=== PATIENT | female | born 1990 | race Caucasian/White ===

== ENCOUNTER 2016-12-31 21:47 | Emergency (ER) | payer OTHER, SELFPAY ==
[2016-12-31 22:23] LABS: #Basophils 0.1 thou/uL (0.0-0.2); #Eosinphils 0.2 thou/uL (0.0-0.7); #Lymphocytes 4.4 thou/uL (1.20-3.40); #Monocytes 0.7 thou/uL (0.11-0.59); #Neutrophils 7.3 thou/uL (1.40-6.50); %Basophils 0.6 % (0.0-1.0); %Eosinophils 1.5 % (0.0-10.0); %Lymphocytes 34.9 % (21.0-51.0); %Monocytes 5.4 % (0.0-10.0); Hematocrit 38.9 % (36.0-47.0); Mean Platelet Volume 6.4 fL (7.4-10.4); Red Blood Cell (RBC) Count 4.39 mill/uL (4.20-5.40); White Blood Cell (WBC) Count 12.7 thou/uL (4.8-10.8)
[2016-12-31 22:32] LABS: Bilirubin Negative (Negative); Blood, Urine Negative (Negative); Glucose, Urine (Dipstick) Negative (Negative); Ketone, Urine Negative (Negative); Nitrite Negative (Negative); Protein, Urine (Dipstick) Negative (Neg-Trace); Urobilinogen 0.2 mg/dL (0.2-1.0)
[2016-12-31 22:50] LABS: ALT (SGPT) 14 U/L (8-55); AST (SGOT) 13 U/L (5-34); Alkaline Phosphatase 101 U/L (40-150); Anion Gap 13 mmol/L (10-20); BUN (Urea Nitrogen) 12 mg/dL (7.0-18.7); Bilirubin, Total 0.3 mg/dL (0.2-1.2); Calc. Creatinine Clearance 0 mL/min (70-130); Calcium 9.1 mg/dL (7.8-10.44); Carbon Dioxide 22 mmol/L (22-29); Chloride 106 mmol/L (98-107); Estimated GFR-MDRD Greater than 90; Globulin 2.9 g/dL (2.4-3.5); Lipase 31 U/L (8-78); Protein, Total 6.8 g/dL (6.0-8.3)
--- NOTE | 2017-01-01 07:05 | ULT ---
PELVIC SONOGRAM TRANSABDOMINAL AND TRANSVAGINAL IMAGING WITH DUPLEX EVALUATION: Date: 12/31/16 HISTORY: Pelvic pain. FINDINGS: Urinary bladder is incompletely distended. The uterus has a heterogeneous echotexture and is 7.5 cm i n length. Endometrium is 1.7 cm in thickness and contains a tiny cystic structure that is 0.4 cm diam eter, correlating with a 5 weeks/1 day gestational age. No yolk sac or pole are apparent. No fr ee fluid is demonstrated within the pelvis. The right ovary is 2.5 cm in length and the left is 2.0 cm. Each has a normal appearance and demonstr ates good color and spectral Doppler flow. IMPRESSION: Tiny cystic structure within the endometrial cavity may represent a very early gestational sac. No ot her significant abnormalities are apparent. Close continued clinical and sonographic follow-up is sug gested. POS: [facility]
--- NOTE | 2017-01-01 08:46 | MRI ---
PRELIMINARY REPORT/[facility]/EMERGENCY AFTER HOURS PROCEDURE: EXAM: MR Abdomen Without Intravenous Contrast EXAM DATE/TIME: Exam ordered 01/01/2017 1:35 AM CLINICAL HISTORY: 26 years old, female; Pain; Abdominal pain; Tenderness; Right lower quadrant (rlq); Patient HX: F26 g [id number] with previous history of ectopic and approximately 6 weeks gestation by dates with positive home test presents with gradually worsening rlq pain for 5 days. States it feels similar to her previous ectopic . States some nausea and vomiting, but mild. Had flu about 2 weeks ago . Denies fevers, chills, or other infectious symptoms at this time. Denies urinary or vaginal dischar ge/pain/bleeding. TECHNIQUE: Multiplanar magnetic resonance images of the abdomen without intravenous contrast. COMPARISON: No relevant prior studies available. FINDINGS: Lower thorax: No acute findings. Liver: Unremarkable. Gallbladder and bile ducts: Unremarkable. No calcified stones. No ductal dilation. Pancreas: Unremarkable. No ductal dilation. Spleen: Unremarkable. No splenomegaly. Adrenals: Unremarkable. No mass. Kidneys and ureters: Unremarkable. No hydronephrosis. Stomach and bowel: Unremarkable. No obstruction. Appendix: Normal appendix. Intraperitoneal space: 2.5 cm complex structure at the medial aspect of the left ovary with fluid att enuation center and thick solid periphery. It is unclear if the medial aspect arises from the left ov dejan or is separate from it. It is somewhat suspicious for ectopic ; however, an eccentric/pa rovarian thick walled corpus luteum cyst cannot be excluded. Small 4-5 mm fluid signal focus in the e ndometrium is indeterminate. No definite evidence of an intrauterine gestation. Soft tissues: Unremarkable. Vasculature: Unremarkable. No abdominal aortic aneurysm. Lymph nodes: Unremarkable. No enlarged lymph nodes. IMPRESSION: 2.5 cm complex left adnexal structure as above, possibly an ectopic , but not definitively diagnostic. Recommend further evaluation with ultrasound. Thank you for allowing us to participate in the care of your patient. Dictated and Authenticated by: Asher Finley MD 01/01/2017 2:44 AM Central Time ([place] & [place]) FINAL REPORT EMERGENT AFTER HOURS MRI OF THE ABDOMEN WITHOUT CONTRST: COMPARISON: Pelvic ultrasound 12/31/16. HISTORY: Positive test. Right lower quadrant abdominal pain for 5 days. FINDINGS/IMPRESSION: I agree with the findings given in the preliminary report per [facility] physician. The appendix is yary l. There is a 2.5 cm complex structure in the left adnexa. This most likely represents a corpus lut eum cyst. However, an ectopic cannot be entirely excluded. This structure is either emana ting from the ovary or immediately adjacent to it. These findings correlate with the findings on ult rasound. There is also a tiny cystic structure within the endometrium which could represent a very e helen or a cyst within the endometrium. Recommend close followup with followup of HCG level s. A followup ultrasound may also be necessary. POS: [facility]
== END 2017-01-01 03:36 | disposition home or self-care (01) ==
LOC: ERS 21:47
DX: O99.89 Other specified diseases and conditions complicating pregnancy, childbirth and the puerperium (principal); R10.31 Right lower quadrant pain; Z3A.01 Less than 8 weeks gestation of pregnancy
CPT/HCPCS: 36415; 74181; 76856; 80053; 81003; 81025; 83690; 84702; 85025; 86850; 86900; 86901

== ENCOUNTER 2017-01-06 14:36 | Emergency (ER) | payer MEDICAID, SELFPAY ==
--- NOTE | 2017-01-06 16:50 | ULT ---
PELVIC ULTRASOUND: Date: 01-06-17 Comparison: None. History: 26-year-old female with pelvic pain. Clinical concern for ectopic . Positive pregna ncy test. Technique: Multiplanar grayscale sonographic imaging of the pelvis is obtained with endovaginal imagi ng. Left ovary assessed with color flow and spectral analysis. FINDINGS: The left ovary measures 3.3 x 1.7 x 2.7 cm and demonstrates normal blood flow without evidence for ma ss lesion. Right ovary could not be visualized on this examination. Uterus measures in the 9.4 x 5.3 x 7.9 cm range. There is oval hypoechoic structure noted within the endometrial stripe. Differential diagnosis includ es a gestational sac versus a pseudo-gestational sac. If this represents a gestational sac, the diame ter would be 1.4 cm, which would correlate with a 6 week 2 day gestation. However, this structure casey s not contain a pole or yolk sac. No free fluid is seen in the pelvic cul-de-sac. The right adnexal region is obscured by bowel gas. IMPRESSION: 1. Oval hypoechoic structure within the endometrial stripe with no pole or yolk sac. Given posi tive test, this could represent an empty gestational sac or a pseudo-gestational sac on the basis of sonographically occult ectopic . Spontaneous and/or early normal pregnanc y is a possibility. 2. Quantitative Beta HCG evaluation at this and in 48 hours is essential for distinguishing these pos sibilities. A follow up pelvic ultrasound in 48 hours may be beneficial as well. ADDENDUM: There is a prior pelvic ultrasound available performed 12-31-16. That study demonstrated a hypoechoic structure within the endometrial stripe which measured in the 4 mm range, thus enlarged since the pr ior examination. Nurse practitioner, Noelle Figueroa made aware at 4:25 p.m. 01-06-17. Code CR. POS: [facility]
== END 2017-01-06 17:03 | disposition home or self-care (01) ==
LOC: ERS 14:36
DX: O99.89 Other specified diseases and conditions complicating pregnancy, childbirth and the puerperium (principal); R10.31 Right lower quadrant pain
CPT/HCPCS: 36415; 76856; 84702

== ENCOUNTER 2017-01-08 12:25 | Emergency (ER) | payer MEDICAID ==
[2017-01-08 13:28] LABS: Bilirubin Negative (Negative); Blood, Urine Negative (Negative); Glucose, Urine (Dipstick) Negative (Negative); Ketone, Urine Negative (Negative); Nitrite Negative (Negative); Protein, Urine (Dipstick) Negative (Neg-Trace); Urobilinogen 0.2 mg/dL (0.2-1.0)
[2017-01-08 13:36] LABS: #Basophils 0.1 thou/uL (0.0-0.2); #Eosinphils 0.3 thou/uL (0.0-0.7); #Lymphocytes 2.8 thou/uL (1.20-3.40); #Monocytes 0.6 thou/uL (0.11-0.59); #Neutrophils 7.3 thou/uL (1.40-6.50); %Basophils 0.5 % (0.0-1.0); %Lymphocytes 25.1 % (21.0-51.0); %Monocytes 5.3 % (0.0-10.0); Hematocrit 40.6 % (36.0-47.0); Mean Platelet Volume 6.8 fL (7.4-10.4); Red Blood Cell (RBC) Count 4.53 mill/uL (4.20-5.40); White Blood Cell (WBC) Count 11.1 thou/uL (4.8-10.8)
[2017-01-08 13:42] LABS: ALT (SGPT) 13 U/L (8-55); AST (SGOT) 13 U/L (5-34); Alkaline Phosphatase 98 U/L (40-150); Anion Gap 12 mmol/L (10-20); BUN (Urea Nitrogen) 9 mg/dL (7.0-18.7); Bilirubin, Total 0.4 mg/dL (0.2-1.2); Calc. Creatinine Clearance 0 mL/min (70-130); Calcium 9.2 mg/dL (7.8-10.44); Carbon Dioxide 22 mmol/L (22-29); Chloride 108 mmol/L (98-107); Estimated GFR-MDRD Greater than 90; Globulin 2.8 g/dL (2.4-3.5); Protein, Total 6.7 g/dL (6.0-8.3)
--- NOTE | 2017-01-08 16:05 | ULT ---
ULTRASOUND PELVIC TRANSVAGINAL: Date: 01/08/17 HISTORY: Pelvic pain. COMPARISON: Pelvic ultrasound 2 days prior. FINDINGS: Uterus measures 8.5 x 5.3 x 4.9 cm. Right ovary measures 1.8 x 1.3 x 1.3 cm. Left ovary measures 2.6 x 2.3 x 1.6 cm. No significant free fluid. There is hypoechoic sac within the fundus with a mean diam eter of 1.15 cm. No pole or yolk sac appreciated. IMPRESSION: Enlarging sac within the fundus with a mean diameter of 1.15 cm. Findings suspicious for, but not hank gnostic of, failure. There is absence of an embryo with a heartbeat 7 days after an ultraso und that showed a gestational sac without a yolk sac. Follow-up HCG an ultrasound recommended on an o utpatient basis. POS: [facility]
--- NOTE | 2017-01-08 16:33 | PRG ---
DATE OF SERVICE: 01/08/2017 TIME OF SERVICE: 15:15 ER PHYSICIAN: Surendra Tolentino M.D. CONSULTING PHYSICIAN: Solomon Cruz M.D. REASON FOR CONSULTATION: Concern about possible ectopic. HISTORY OF PRESENT ILLNESS: Ms. Posadas is a 26-year-old 5, para 2, AB 2 (ectopic 1, miscarri age 1 who has been seen on 12/31/2016, 01/06/2017 and 01/08/2017. She is status post repeat C-sectio n by Dr. Brian Reyna in September. She has had occasional sharp right lower quadrant pain for the past several days. She has had 2 ultrasounds, both of which revealed a double ring gestational sac witho ut pole. Her hematocrit is stable at 39%-40%. Her beta hCG has increased in approximately 20 hours from 8,800-13,300. On 12/31/2016, it was 1570. All other lab work is within normal limits. T he patient is O positive. [facility] HISTORY: x2. SAB x1. Ectopic with methotrexate x1. The patient reports that she had an adnexal mass that was visible and was treated with methotrexate. Of note, she desires not to have methotrexate treatment again. PAST MEDICAL HISTORY: Significant for cholecystitis. PAST SURGICAL HISTORY: Significant for cholecystectomy and appendectomy, laparoscopy for endometrios is. FAMILY HISTORY: Noncontributory. SOCIAL HISTORY: Denies tobacco, alcohol, or IV drug abuse. REVIEW OF SYSTEMS: Noncontributory. MEDICATIONS: vitamins. ALLERGIES: None. PHYSICAL EXAMINATION: GENERAL APPEARANCE: Patient is appropriate and reports no pain. VITAL SIGNS: Stable, afebrile. Currently, temperature 98.6, respirations 18, pulse 82. HEENT: Within normal limits. LUNGS: Clear to auscultation bilaterally. ABDOMEN: Soft and nontender without rebound or guarding. PELVIC: Vulva without lesions. Vaginal and bimanual exam are deferred. LABORATORY DATA AND IMAGING: Hematocrit and beta hCG is noted. Ultrasound is noted. Films were rev iewed with Dr. Doshi. Neither the ultrasound on the or reveal any evidence of free fluid, adnexal mass or extrauterine . An intrauterine gestational sac with a double ring sign is n oted. Gestational sac diameter is approximately 1.4 cm. IMPRESSION: Probable early missed , but beta hCG is rising and near appropriate and nearing doubling for 48 hours. No current vaginal bleeding. No evidence of ectopic . PLAN: Discussed with patient options including D&C, methotrexate or outpatient followup. She desire s to proceed with outpatient followup. We will have the patient present to the emergency room for re peat beta hCG on 01/10/2017 and have ultrasound and follow at [facility] [place] on 017. If no evidence of intrauterine viable is noted at that time, would be an appropriate candidate for Cytotec versus D&C.
== END 2017-01-08 15:41 | disposition home or self-care (01) ==
LOC: ERS 12:25
DX: O20.0 Threatened abortion (principal); Z3A.01 Less than 8 weeks gestation of pregnancy
CPT/HCPCS: 36415; 76856; 80053; 81003; 84702; 85025

== ENCOUNTER 2017-01-10 11:05 | Emergency (ER) | payer MEDICAID ==
--- NOTE | 2017-01-10 15:47 | ULT ---
PELVIC ULTRASOUND: DATE: 01/10/17. HISTORY: Followup pelvic ultrasound. The patient has fluid collection in endometrial canal suggesting gestati onal sac, but no pole or yolk sac is able to be visualized. COMPARISON: 01/08/17 and 01/06/17. FINDINGS: There is a fluid collection again seen in the endometrial canal. Mean sac diameter is 1.37 cm which has increased from the study on 01/08/17 but the mean sac diameter remains smaller when compared to t he study on 01/06/17. However, there is now echogenic focus seen within the presumed gestational sac . A definite yolk sac is not visualized. Doppler evaluation of this echogenic focus within the endo metrial canal does not demonstrate heart tones. The ovaries demonstrate a normal sonographic appearance bilaterally with the right ovary measuring 2. 1 cm x 1.3 cm x 1.2 cm and the left ovary measuring 3 cm x 2 cm x 2.2 cm. Doppler evaluation of each ovary with spectral analysis and color flow evaluation does demonstrate arterial flow. There is a trace amount of free fluid seen in the cul-de-sac. IMPRESSION: 1. Fluid collection in the endometrial canal presumed to represent a gestational sac. However, this has diminished in mean sac diameter when compared to a study on 01/06/17. However, there is now an echogenic structure present within the presumed gestational sac, but no heart rates are detecte d by cardiac Doppler evaluation. A mean sac diameter of this size suggests a gestational age by ultr asound of 6 weeks and 2 days, and heart tones should be detected. Findings may be related to f etal demise, although given that there is an echogenic structure now present within the presumed gest ational sac, this could potentially represent a very early intrauterine gestation. Some of the image s question that this structure may represent a yolk sac. As a result of these findings, continued sh ort interval followup sonographic evaluation is recommended, and continued correlation with quantitat kirk beta HCG levels is recommended. 2. Trace amount of free fluid in the pelvis. 3. Normal-appearing bilateral ovaries. POS: [facility]
== END 2017-01-10 13:59 | disposition home or self-care (01) ==
LOC: ERS 11:05
DX: Z32.00 Encounter for pregnancy test, result unknown (principal)
CPT/HCPCS: 36415; 76856; 84702

== ENCOUNTER 2017-02-11 15:10 | Outpatient (CLI) | payer BC, MEDICAID ==
--- NOTE | 2017-02-11 17:04 | ULT ---
ULTRASOUND OB COMPLETE STANDARD 02/11/17 HISTORY: Continuously elevated HCG levels. 9 week gestation. COMPARISON: Numerous prior examinations, most recent 01/10/17. FINDINGS: On the static images there appear to be a cystic structure involving the fundus at the uterine endome trial cavity, although in real time this suggests debris within a distended endometrial canal. There is decidualized tissue likely the cause of elevated HCG levels. No fetus is present. Both ovaries are normal. IMPRESSION: Abnormal fluid and debris collection in the endometrial cavity with decidualized tissue suggests a bl ighted ovum, although on the static images there appears to be a multicystic mass involving the endom etrial cavity. This is not apparent in the real time imaging which was done by the radiologist. POS: [facility]
== END 2017-02-11 15:11 | disposition home or self-care (01) ==
LOC: ULT 15:10
PROVIDERS: ATTEND Family Medicine
DX: Z34.91 Encounter for supervision of normal pregnancy, unspecified, first trimester (principal); Z3A.09 9 weeks gestation of pregnancy
CPT/HCPCS: 76856

== ENCOUNTER 2017-02-17 19:00 | Emergency (ER) | payer BC, OTHER ==
[2017-02-17 19:52] LABS: #Basophils 0.1 thou/uL (0.0-0.2); #Eosinphils 0.3 thou/uL (0.0-0.7); #Lymphocytes 3.8 thou/uL (1.20-3.40); #Monocytes 0.7 thou/uL (0.11-0.59); #Neutrophils 7.6 thou/uL (1.40-6.50); %Basophils 0.6 % (0.0-1.0); %Eosinophils 2.2 % (0.0-10.0); %Lymphocytes 30.6 % (21.0-51.0); %Monocytes 5.6 % (0.0-10.0); %Neutrophils 60.9 % (42.0-75.0); Mean Corpuscular HGB CONC 35.2 g/dL (32.0-36.0); Mean Corpuscular Hemoglobin 31.2 pg (27.0-31.0); Mean Corpuscular Volume 88.8 fl (81.0-99.0); Mean Platelet Volume 6.5 fL (7.4-10.4); Platelet Count 251 thou/uL (130-400); RBC Distribution Width 11.2 % (11.5-14.5); Red Blood Cell (RBC) Count 4.47 mill/uL (4.20-5.40); White Blood Cell (WBC) Count 12.5 thou/uL (4.8-10.8)
[2017-02-17 20:15] LABS: ALT (SGPT) 12 U/L (8-55); AST (SGOT) 14 U/L (5-34); Alkaline Phosphatase 89 U/L (40-150); Anion Gap 11 mmol/L (10-20); BUN (Urea Nitrogen) 11 mg/dL (7.0-18.7); Bilirubin, Total 0.3 mg/dL (0.2-1.2); Calc. Creatinine Clearance 0 mL/min (70-130); Calcium 9.6 mg/dL (7.8-10.44); Carbon Dioxide 24 mmol/L (22-29); Chloride 107 mmol/L (98-107); Estimated GFR-MDRD Greater than 90; Glucose 135 mg/dL (70-105); Potassium 3.8 mmol/L (3.5-5.1); Sodium 138 mmol/L (136-145)
[2017-02-17 20:32] LABS: Bilirubin Negative (Negative); Blood, Urine Large (Negative); Clarity CLOUDY (Clear); Glucose, Urine (Dipstick) Negative (Negative); Leukocyte Trace (Negative); Nitrite Negative (Negative); Protein, Urine (Dipstick) 100 mg/dL (Neg-Trace); Specific Gravity, Urine 1.031 (1.002-1.036); pH, Urine 6.5 (5.0-9.0)
[2017-02-17 20:34] LABS: Bacteria/HPF None Seen HPF (None Seen); Hyaline Casts/LPF 0-3 HYALINE CAST LPF (0-3 Hyaline); Pathc Cast-AUWi Flag 0.27 (0-2.49); RBC/HPF GREATER THAN 50-TNTC HPF (0-3); Squamous Epithelial 0-3 HPF (0-3); WBC/HPF 0-3 HPF (0-3)
[2017-02-17] MEDS ORDERED: Morphine 4 MG/ML VIAL ONE ×3 (21:19→23:02)
--- NOTE | 2017-02-17 22:39 | PDOC.EVN ---
Event Note - Event Note Event Note: OBGYN Phone Consultation: Contacted by Rubin Garcia MD in the ER. History reviewed. Patient with suspected blighted ovum vs molar gestation. HCT 39.7. No evidence acute abdomen. I was contacted to arrange outpatient [facility] Follow up as no evidence of need for emergent D&C at this time. I will fax a referral to [facility] to arrange office appointment LINDA to schedule D&C.
--- NOTE | 2017-02-18 06:39 | PDOC.EVN ---
Event Note - Event Note Event Note: POST ED DISCHARGE NOTE: I was contacted by transfer center @ 0600 that the patient presented to [place] ED now with brisk vag bleed. She will have the D&C there at that location.
== END 2017-02-17 23:12 | disposition home or self-care (01) ==
LOC: ERS 19:00
DX: O03.4 Incomplete spontaneous abortion without complication (principal)
CPT/HCPCS: 36415; 80053; 81003; 81015; 84702; 85025; 96361; 96374; 96376; J2270

== ENCOUNTER 2018-07-05 10:07 | Emergency (ER) | payer BC ==
[2018-07-05] MEDS ORDERED: Ondansetron PF 4 MG/2 ML Vial ONE (10:32)
[2018-07-05 10:58] LABS: #Basophils 0.1 thou/uL (0.0-0.2); #Eosinphils 0.1 thou/uL (0.0-0.7); #Lymphocytes 1.9 thou/uL (1.20-3.40); #Monocytes 0.6 thou/uL (0.11-0.59); #Neutrophils 7.2 thou/uL (1.40-6.50); %Basophils 0.5 % (0.0-1.0); %Eosinophils 1.4 % (0.0-10.0); %Lymphocytes 19.1 % (21.0-51.0); %Monocytes 6.1 % (0.0-10.0); %Neutrophils 72.9 % (42.0-75.0); BHCG - Serum Negative (NEGATIVE); Bilirubin Negative (Negative); Blood, Urine Trace (Negative); Clarity Cloudy (Clear); Glucose, Urine (Dipstick) Negative (Negative); Hemoglobin 14.2 g/dL (12.0-16.0); Leukocyte Negative (Negative); Mean Corpuscular HGB CONC 34.3 g/dL (32.0-36.0); Mean Corpuscular Hemoglobin 29.2 pg (27.0-31.0); Mean Platelet Volume 6.7 fL (7.4-10.4); Nitrite Negative (Negative); Platelet Count 228 thou/uL (130-400); Pregs Control Background? CLEAR/WHITE (CLR/WHITE); Pregs Control Bar Appear? YES (CONTROL BAR); Protein, Urine (Dipstick) Negative (Neg-Trace); RBC Distribution Width 11.4 % (11.5-14.5); Red Blood Cell (RBC) Count 4.88 mill/uL (4.20-5.40); Urobilinogen 0.2 mg/dL (0.2-1.0); White Blood Cell (WBC) Count 9.9 thou/uL (4.8-10.8)
[2018-07-05 11:04] LABS: ALT (SGPT) 11 U/L (8-55); AST (SGOT) 11 U/L (5-34); Alkaline Phosphatase 85 U/L (40-150); Anion Gap 11 mmol/L (10-20); BUN (Urea Nitrogen) 9 mg/dL (7.0-18.7); Bilirubin, Total 0.2 mg/dL (0.2-1.2); Calc. Creatinine Clearance 0 mL/min (70-130); Calcium 9.3 mg/dL (7.8-10.44); Carbon Dioxide 22 mmol/L (22-29); Chloride 111 mmol/L (98-107); Estimated GFR-MDRD 85; Globulin 2.7 g/dL (2.4-3.5); Glucose 92 mg/dL (70-105); Potassium 3.8 mmol/L (3.5-5.1); Protein, Total 6.7 g/dL (6.0-8.3); Sodium 140 mmol/L (136-145)
[2018-07-05 11:06] LABS: Bacteria/HPF 1+ HPF (None Seen); Crystals/HPF 1+ AMORPH PHOS HPF (Negative); Hyaline Casts/LPF 0-3 HYALINE CAST LPF (0-3 Hyaline); RBC/HPF 0-3 HPF (0-3); WBC/HPF 0-3 HPF (0-3)
== END 2018-07-05 11:52 | disposition home or self-care (01) ==
LOC: SCSER 10:07
DX: R19.7 Diarrhea, unspecified (principal); R11.2 Nausea with vomiting, unspecified
CPT/HCPCS: 80053; 81003; 81015; 84703; 85025; J2405

== ENCOUNTER 2018-07-05 12:00 | Outpatient (CLI) | payer BC ==
--- NOTE | 2018-07-05 14:21 | CT ---
CT ABDOMEN AND PELVIS WITHOUT CONTRAST: Date: 07/05/18 HISTORY: 28-year-old female with right flank pain, low back pain, nausea, vomiting, and diarrhea. FINDINGS: Absence of oral and IV Contrast reduces the sensitivity of exam, particularly for evaluation of solid organs and bowel. The lung bases are clear. The patient is post cholecystectomy. No free air or free fluid is seen in t he abdomen or pelvis. No calculi seen in the kidneys, ureters, or the urinary bladder. No hydroureteronephrosis seen on eit her side. Normal appearing appendix is seen. Uterus and ovaries are present. No acute osseous abnormalities are identified. IMPRESSION: No CT evidence of urinary tract calculi/obstruction or appendicitis. POS: [facility]
== END 2018-07-05 12:01 | disposition home or self-care (01) ==
LOC: SCSCT 12:00
PROVIDERS: ATTEND Family Medicine
DX: M54.5 Low back pain (principal)
CPT/HCPCS: 74176; 80053; 81003; 81015; 84703; 85025; J2405